=== PATIENT | female | born 1965 | race Caucasian/White ===

== ENCOUNTER 2020-04-05 06:29 | Day surgery (SDC) | payer OTHER ==
[~2020-04-05 06:29] MED LIST: Dextrose 5%-0.45% NaCl 1,000 ML IV SCH; Sodium Chloride 0.9% 10 ML Syringe FLUSH PRN
[2020-04-05] MEDS ORDERED: Midazolam 1 MG/ML 2 ML SDV IV ONE ×3 (06:30→07:35)
[2020-04-05] MEDS ORDERED: fentaNYL 100 MCG/2 ML SDV IV ONE ×3 (06:30→07:34)
[2020-04-05] MEDS ORDERED: fentaNYL 100 MCG/2 ML SDV ONE (06:36)
[2020-04-05] MEDS ORDERED: Midazolam 1 MG/ML 2 ML SDV ONE (06:36)
--- NOTE | 2020-04-05 14:26 | OR ---
DATE: 04/05/2020 PROCEDURES: Esophagogastroduodenoscopy and multiple pinch biopsies. INSTRUMENT USED: GIF-HQ190 Olympus video panendoscope. PREMEDICATIONS: No oral or topical anesthesia used. Fentanyl 100 mcg intravenous, Versed 2 mg intravenous, nasal O2 cannula. The procedure was done under pulse oximetry, BP recording, and sales planning analyst. INDICATION: The patient with long-standing heartburn and dysphagia, unexplained and not responsive to medical measures, on PPI. Esophagogastroduodenoscopy is performed for detection of any active erosive lesions, Lai esophagus and/or malignancy also under consideration, H pylori status to be determined. Esophageal dilatations if indicated, endoscopic hemostasis therapy if needed. PROCEDURE IN DETAIL: The scope was passed with ease. Adequate visualization of the esophagus was made from proximal to distal areas. No upper esophageal lesions identified. No uphill or downhill esophageal varices. No Amarilis-Pereira tear. Grade A erosive changes were noted by Los-Marlena criteria. There was some stricture of the distal esophagus, but the tip of the scope was passed with ease to visualize the gastric mucosa. No esophageal polyp or tumor mass identified. No proximal gastric varices noted. Gastric fundus examination by retroflexion showed no polypoid lesions. No gastric ulcer, malignant mass, or vascular ectasia identified. Duodenal bulb showed no ulcer. Visualized second part of the duodenum was unremarkable. Multiple pinch biopsies were taken from the gastric antrum and proximal body and sent for PyloriTek test for H pylori, and if negative in an hour, tissue is to be sent for histopathology. No bleeding was noted from any of the visualized areas at the completion of examination. Photographs were taken of the duodenal bulb, gastric antrum, fundus, and distal esophagus. IMPRESSION: 1. Grade A gastroesophageal reflux disease. 2. Peptic esophageal stricture. The patient tolerated the procedure well. [facility] /[id number]
--- NOTE | 2020-04-05 14:35 | OR ---
DATE: 04/05/2020 PROCEDURE DONE: Esophageal dilatation. INSTRUMENT USED: [place] dilator, Macedonian size 48. INDICATION: Peptic esophageal stricture. PREMEDICATIONS: Done after esophagogastroduodenoscopy. PROCEDURE IN DETAIL: Esophageal dilatation was done with ease using dilator Macedonian size 48. Small amount of blood was noted at dilated tip after completion. IMPRESSION: Peptic esophageal stricture. The patient tolerated the procedure well. [facility] /[id number]
--- NOTE | 2020-04-05 15:10 | LETTER ---
04/05/2020 Ye Schafer DO [facility] [address] [place] [address] RE: MARIUSZ CAVAZOS : [address] Schafer: Ms. Mariusz Cavazos had esophagogastroduodenoscopy and esophageal dilatation done today and she tolerated the procedure well. I herewith send a copy of the endoscopy notes as well as photographs for your review. Thank you. Sincerely, [facility] /[id number]
== END 2020-04-05 09:50 | disposition home or self-care (01) ==
LOC: DL.ENDO 06:29
PROVIDERS: ATTEND Internal Medicine Gastroenterology
DX: K21.9 Gastro-esophageal reflux disease without esophagitis (principal); K22.2 Esophageal obstruction; E11.9 Type 2 diabetes mellitus without complications; E78.5 Hyperlipidemia, unspecified; Z90.710 Acquired absence of both cervix and uterus; Z86.69 Personal history of other diseases of the nervous system and sense organs; Z88.8 Allergy status to other drugs, medicaments and biological substances
CPT/HCPCS: 43239; 43450; 87077; J2250; J3010; J7042